=== PATIENT | female | born 1990 | race Caucasian/White ===

== ENCOUNTER 2017-04-14 16:31 | Inpatient (IN) | payer OTHER ==
[~2017-04-14] VITALS: Ht 170.2 cm; Wt 91.4 kg
[~2017-04-14 16:31] MED LIST: MIRALAX PA17 GM/Dose PO; MOTRIN 600600 MG/TAB PO; PRENATA1 CTB; VALTREX 50500 MG/TAB PO
[2017-05-30] VITALS (24 sets, daily range): BP systolic 119–148; BP diastolic 59–90; PULSE 63–112; TEMP 98–98.2
[2017-05-30] MEDS ORDERED: VITAMIN B-6100 MG (11:17)
[2017-05-30] MEDS ORDERED: UNISOM25 MG PO (11:17)
[2017-05-30 11:22] LABS: BASO % 0.4 % (0.0-2.0); EOS # 0.1 (0.0-0.7); EOS % 0.9 % (0-4.0); GRAN % 63.8 % (42.2-75.2); HEMATOCRIT 40.6 % (37.0-47.0); HEMOGLOBIN 14.1 g/dl (12.5-16.0); LYMPH # 2.1 (1.2-3.4); LYMPH % 26.3 % (20.0-51.0); MEAN CELL VOLUME 90 fl (80.0-100.0); MEAN CORPUSCULAR HEMOGLOBIN 31 pg (27.0-31.0); MEAN CORPUSCULAR HGB CONC 35 g/dl (33.0-37.0); MEAN PLATELET VOLUME 9.6 fl (7.4-10.4); MONO # 0.7 (0.1-0.6); MONO % 8.2 % (1.7-9.3); PLATELET COUNT 211 K/mm3 (130-400)
[2017-05-31 04:30] VITALS: BP 119/72; PULSE 88
[2017-05-31 07:30] VITALS: BP 118/68; PULSE 77; TEMP 98.5
[2017-05-31] MEDS ORDERED: IBU600 MG PO (10:04)
[2017-05-31 16:40] VITALS: BP 120/71; PULSE 86; TEMP 98.5
[2017-05-31 19:50] VITALS: BP 107/61; PULSE 82; TEMP 98.2
[2017-06-01 08:10] VITALS: BP 109/66; PULSE 83; TEMP 97.6
== END 2017-06-01 13:40 | disposition home or self-care (01) | DRG 775 ==
LOC: LDR 05-11 16:31 → OB 05-30 18:30 → LDR 05-31 06:40 → OB 06-01 13:40
PROVIDERS: Obstetrics & Gynecology
PROC: 10E0XZZ Delivery of Products of Conception, External Approach (ICD-10-PCS; principal; 2017-05-30)
PROC: 3E033VJ Introduction of Other Hormone into Peripheral Vein, Percutaneous Approach (ICD-10-PCS; 2017-05-30)
PROC: 0UQMXZZ Repair Vulva, External Approach (ICD-10-PCS; 2017-05-30)
DX: O28.8 Other abnormal findings on antenatal screening of mother (principal); O48.0 Post-term pregnancy; O70.0 First degree perineal laceration during delivery; Z3A.41 41 weeks gestation of pregnancy; Z37.0 Single live birth
CPT/HCPCS: J2590; J7120

== ENCOUNTER 2019-08-27 04:30 | Inpatient (IN) | payer BC ==
[~2019-08-27] VITALS: Ht 170.2 cm; Wt 93.6 kg
[2019-08-27] VITALS (35 sets, daily range): BP systolic 108–141; BP diastolic 50–87; PULSE 65–114; TEMP 97.8–98.6
--- NOTE | 2019-08-27 03:20 | NUR ---
To unit for labor assessment, accompnaied by spouse. Pt reports "i"m not sure if my water broke" Oriented to room ,monitor, plan of care, mask/Covid 19 protocol. Verbalizes understanding.
--- NOTE | 2019-08-27 03:35 | NUR ---
SVE as noted, mucousy reyes discharge, no color change to amnio trance, no pooling.
[~2019-08-27 04:30] MED LIST changes: +IBU600 MG PO; +UNISOM25 MG PO; +VITAMIN B-6100 MG
[2019-08-27 06:33] LABS: BASO % 0.3 % (0.0-2.0); EOS # 0.1 (0.0-0.7); EOS % 1.3 % (0-4.0); GRAN # 4.2 (1.4-6.5); GRAN % 62.1 % (42.2-75.2); HEMOGLOBIN 11.5 g/dl (12.5-16.0); LYMPH # 1.8 (1.2-3.4); LYMPH % 26.4 % (20.0-51.0); MEAN CELL VOLUME 90 fl (80.0-100.0); MEAN CORPUSCULAR HEMOGLOBIN 32 pg (27.0-31.0); MEAN CORPUSCULAR HGB CONC 35 g/dl (33.0-37.0); MONO # 0.7 (0.1-0.6); MONO % 9.5 % (1.7-9.3); PLATELET COUNT 195 K/mm3 (130-400); RED BLOOD COUNT 3.64 M/mm3 (4.10-5.30); REDCELL DISTRIBUTION WIDTH-CV 13.4 % (11.5-14.5)
[2019-08-27 06:36] LABS: HEMATOCRIT 32.9 % (37.0-47.0)
--- NOTE | 2019-08-27 06:50 | NUR ---
0630 Report received, care assumed. Patient resting in bed. Plan of care reviewed. EFMs connected. LR infusing per orders and protocol. 0650 FHR 135 bpm and reactive. Pitocin started at 2mu per orders and protocol.
--- NOTE | 2019-08-27 09:15 | NUR ---
0845 Patient more uncomfortable with contractions, tense and breathing through them. Patient frequently changes from a standing position and knee chest making FHR difficult to monitor. This nurse remains at bedside to adjust monitor and head tennis coach patient. 0910 Patient c/o increased pressure, SVE . 0915 Patient request epidural. IVF bolus started and [employer]END[employer] notified.
--- NOTE | 2019-08-27 09:41 | NUR ---
0935 NIMISHA Beaver to room to place epidural. Patient sits upright on the edge of bed for procedure. 0941 Test dose administed by NIMISHA Beaver. See anesthesia record for details of epidural placement.
--- NOTE | 2019-08-27 11:40 | NUR ---
Patient c/o increased pressure and the urge to push. SVE 8/100/+1. Dr. Crenshaw notified.
--- NOTE | 2019-08-27 12:07 | NUR ---
1200 Dr. Crenshaw to room. SVE - complete/+2. Patient prepped for delivery. 1207 Spontaneous vaginal delivery of viable female by Dr. Crenshaw. Cord clamped and cut and to the care of the nursery RN. 1212 Spontaneous delivery of placenta by Dr. Crenshaw. Pitocin infusing at 333ml/hr per orders and protocol. Fundus firm, lochia WNL.
[2019-08-27] MEDS ORDERED: MOTRIN 800800 MG/TAB PO (20:40)
[2019-08-28 07:41] VITALS: BP 113/59; PULSE 66; TEMP 98.1
== END 2019-08-28 15:10 | disposition home or self-care (01) | DRG 806 ==
LOC: LDR 04:30 → OB 14:28 → LDR 15:30 → OB 08-28 15:10
PROVIDERS: Obstetrics & Gynecology; ADMIT Obstetrics & Gynecology
PROC: 10E0XZZ Delivery of Products of Conception, External Approach (ICD-10-PCS; principal; 2019-08-27)
PROC: 0UQMXZZ Repair Vulva, External Approach (ICD-10-PCS; 2019-08-27)
PROC: 10907ZC Drainage of Amniotic Fluid, Therapeutic from Products of Conception, Via Natural or Artificial Opening (ICD-10-PCS; 2019-08-27)
PROC: 3E033VJ Introduction of Other Hormone into Peripheral Vein, Percutaneous Approach (ICD-10-PCS; 2019-08-27)
DX: O98.52 Other viral diseases complicating childbirth (principal); B00.89 Other herpesviral infection; Z37.0 Single live birth; O99.62 Diseases of the digestive system complicating childbirth; K21.9 Gastro-esophageal reflux disease without esophagitis; O99.52 Diseases of the respiratory system complicating childbirth; J45.909 Unspecified asthma, uncomplicated; O70.0 First degree perineal laceration during delivery; Z3A.39 39 weeks gestation of pregnancy
CPT/HCPCS: J2405; J2590; J7120